=== PATIENT | female | born 1985 | race Asian ===

== ENCOUNTER 2018-07-08 18:34 | Emergency (ER) | payer MEDICAID ==
[~2018-07-08] VITALS: Ht 154.9 cm; Wt 54.4 kg
[2018-07-08 18:38] VITALS: BP_SYST 117
[2018-07-08] MEDS ORDERED: ONDANSETRON 4 MG ODT TAB PO ONE (19:45)
[2018-07-08 20:40] VITALS: BP_SYST 117
== END 2018-07-08 20:40 | disposition home or self-care (01) ==
LOC: SED 18:34
DX: T62.8X1A Toxic effect of other specified noxious substances eaten as food, accidental (unintentional), initial encounter (principal); Y92.89 Other specified places as the place of occurrence of the external cause
CPT/HCPCS: 99283; Q0162